=== PATIENT | female | born 1990 | race Caucasian/White ===

== ENCOUNTER 2017-06-20 07:20 | Day surgery (SDC) | payer OTHER ==
[2017-06-20] MEDS ORDERED: PROPOFOL 500 MG/50 ML EMU IV ONE (07:43)
[2017-06-20] MEDS ORDERED: LIDOCAINE HCL 1% MPF SOL ONE (07:43)
[2017-06-20 09:20] VITALS: RESP 20; TEMP 97.4; O2SAT 100
[2017-06-20 09:22] VITALS: BP 108/65; PULSE 67
== END 2017-06-20 09:40 | disposition home or self-care (01) | DRG 392 ==
LOC: SURG 07:20
PROVIDERS: ATTEND Surgery
DX: R10.13 Epigastric pain (principal); R19.7 Diarrhea, unspecified
CPT/HCPCS: J2001; J2704

== ENCOUNTER → 2017-08-27 | Day surgery (SDC) | payer OTHER ==
[~2017-08-27] MED LIST: LIDOCAINE HCL 1% 5 ML ONE; PROPOFOL 500 MG/50 ML EMU IV ONE
[2017-08-27 08:11] VITALS: BP 102/65; PULSE 63; RESP 20; TEMP 96.6; O2SAT 100
== END | disposition home or self-care (01) | DRG 392 ==
LOC: SURG 06:36
PROVIDERS: ATTEND Surgery
DX: R10.11 Right upper quadrant pain (principal); K52.9 Noninfective gastroenteritis and colitis, unspecified; K62.5 Hemorrhage of anus and rectum
CPT/HCPCS: J2704

== ENCOUNTER 2018-02-26 09:36 | Day surgery (SDC) | payer OTHER ==
[2018-02-26] MEDS ORDERED: DIAZEPAM 5 MG TAB ONE (10:13)
[2018-02-26] MEDS ORDERED: DEXAMETHASONE SOD PHOS PF 10 MG/ML SOL IJ ONE (11:06)
[2018-02-26] MEDS ORDERED: BUPIVACAINE HCL 0.25% MPF 30 ML SOL INFIL ONE (11:06)
[2018-02-26 12:01] VITALS: BP 102/70; PULSE 75; RESP 16; TEMP 98.6; O2SAT 100
== END 2018-02-26 11:55 | disposition home or self-care (01) | DRG 552 ==
LOC: SURG 09:36
PROVIDERS: ATTEND Nurse Anesthetist, Certified Registered
DX: M51.17 Intervertebral disc disorders with radiculopathy, lumbosacral region (principal)
CPT/HCPCS: A9270-GY; J1100

== ENCOUNTER 2018-03-10 14:12 | Emergency (ER) | payer OTHER ==
[2018-03-10 14:21] VITALS: BP 131/88; PULSE 89; RESP 20; TEMP 97.2; O2SAT 99
[2018-03-10] MEDS ORDERED: DIAZEPAM 5 MG TAB PO ONE (14:38)
[2018-03-10] MEDS ORDERED: KETOROLAC TROMETHAMINE 30 MG/ML SOL IM ONE (14:38)
[2018-03-10] MEDS ORDERED: KETOROLAC TROMETHAMINE 30 MG/ML SOL ONE (14:42)
[2018-03-10] MEDS ORDERED: DIAZEPAM 5 MG TAB ONE (14:42)
== END 2018-03-10 14:58 | disposition home or self-care (01) | DRG 552 ==
LOC: ED 14:12
DX: M54.30 Sciatica, unspecified side (principal)
CPT/HCPCS: 96372; 99282; 99283; J1885; A9270-GY

== ENCOUNTER 2018-03-26 12:05 | Day surgery (SDC) | payer OTHER ==
[2018-03-26] MEDS ORDERED: DEXAMETHASONE SOD PHOS PF 10 MG/ML SOL IJ ONE (12:39)
[2018-03-26] MEDS ORDERED: BUPIVACAINE HCL 0.5% MPF 10 ML SOL ONE (12:41)
[2018-03-26] MEDS: FENTANYL 100MCG/2ML SOL ONE ×2 (12:53→13:05)
[2018-03-26] MEDS: MIDAZOLAM 2 MG/2 ML SOL ONE ×2 (12:54→12:58)
[2018-03-26 13:02] VITALS: O2SAT 99
[2018-03-26 13:20] VITALS: BP 101/73; PULSE 86; RESP 18; TEMP 97.8
== END 2018-03-26 13:41 | disposition home or self-care (01) | DRG 552 ==
LOC: SURG 12:05
PROVIDERS: ATTEND Nurse Anesthetist, Certified Registered
DX: M51.17 Intervertebral disc disorders with radiculopathy, lumbosacral region (principal)
CPT/HCPCS: J2250; J3010; J1100